=== PATIENT | female | born 1955 | race Caucasian/White ===

== ENCOUNTER 2024-04-11 15:25 | Day surgery (SDC) | payer MEDICARE, OTHER ==
[2024-04-11] MEDS ORDERED: Sodium Chloride 0.9(Preservative Free) 10 ML IJ ONE (15:26)
[2024-04-11] MEDS ORDERED: Depo-Medrol 40 MG/ML IM ONE (15:26)
[2024-04-11] MEDS ORDERED: LIDOCAINE HCL 1% 50 MG/5 ML VL PF IJ ONE (15:26)
[2024-04-11] MEDS ORDERED: Lactated Ringers 1,000 ML IV ONE (17:25)
[2024-04-11] MEDS ORDERED: MORPHINE SULFATE 2 MG INJ ONE (17:32)
--- NOTE | 2024-04-11 19:10 | XRAY ---
Indication: Lumbar JOSIE. Intraoperative fluoroscopy provided for 17 seconds. 4 digital spot image submitted for interpretation demonstrates posterior needle tip projecting posterior to S1. Small amount of contrast injected for needle tip placement. Correlate with intraoperative findings/report.
--- NOTE | 2024-04-12 10:02 | XRAY ---
17 seconds of fluoroscopy was used in surgery for a lumbar JOSIE.
== END 2024-04-11 17:53 | disposition home or self-care (01) ==
LOC: SDC-PAIN 15:25
PROVIDERS: ATTEND Psychiatry & Neurology Pain Medicine
DX: M54.16 Radiculopathy, lumbar region (principal)
CPT/HCPCS: 62323; 72100; 77003; J2001; J2270; Q9966

== ENCOUNTER 2024-05-23 13:06 | Day surgery (SDC) | payer MEDICARE, OTHER ==
[2024-05-23] MEDS ORDERED: Sodium Chloride 0.9(Preservative Free) 10 ML IJ ONE (13:07)
[2024-05-23] MEDS ORDERED: Decadron 4 MG INJ IV ONE (13:07)
[2024-05-23] MEDS ORDERED: DIPRIVAN 200 MG/20 ML IV ONE (14:30)
[2024-05-23] MEDS ORDERED: Lactated Ringers 1,000 ML IV ONE (14:49)
[2024-05-23] MEDS ORDERED: MORPHINE SULFATE 2 MG INJ ONE (14:52)
--- NOTE | 2024-05-23 16:24 | XRAY ---
Indication: Right L4-S1 transforaminal JOSIE. Intraoperative fluoroscopy provided for 37 seconds. 5 digital spot images submitted for interpretation demonstrates posterior needle tips projecting over the expected right L4 and L5 nerve roots. Small amount of contrast injected for needle tip placement. Correlate with intraoperative findings/report.
--- NOTE | 2024-05-23 17:13 | XRAY ---
37 seconds of fluoroscopy was used in surgery for a right L4-S1 transforaminal JOSIE.
[2024-05-24] MEDS ORDERED: Sodium Chloride 0.9(Preservative Free) 10 ML IJ ONE (11:00)
[2024-05-24] MEDS ORDERED: Decadron 4 MG INJ IV ONE (11:00)
== END 2024-05-23 15:16 | disposition home or self-care (01) ==
LOC: SDC-PAIN 13:06
PROVIDERS: ATTEND Psychiatry & Neurology Pain Medicine
DX: M54.16 Radiculopathy, lumbar region (principal)
CPT/HCPCS: 64483; 64484; 72100; 77003; J1100; J2270; J2704; Q9966

== ENCOUNTER 2024-05-23 13:06 | Day surgery (SDC) | payer MEDICARE, OTHER | END 2024-05-23 15:16 | disposition home or self-care (01) | LOC: SDC 13:06 → SDC-PAIN 13:06 → EDSTATUS 13:12 → SDC-PAIN 15:16 | PROVIDERS: ATTEND Psychiatry & Neurology Pain Medicine | DX: Z53.8 Procedure and treatment not carried out for other reasons (principal) ==